=== PATIENT | female | born 1975 | race Caucasian/White ===

== ENCOUNTER 2019-08-05 11:29 | Emergency (ER) | payer SELFPAY | END 2019-08-05 17:00 | disposition home or self-care (01) | LOC: MED 11:29 | DX: S43.402A Unspecified sprain of left shoulder joint, initial encounter (principal); Z98.890 Other specified postprocedural states; W22.01XA Walked into wall, initial encounter; Y93.89 Activity, other specified; Y92.89 Other specified places as the place of occurrence of the external cause; Y99.8 Other external cause status | CPT/HCPCS: 73030; 99283 ==